=== PATIENT | female | born 1970 | race Caucasian/White ===

== ENCOUNTER 2022-08-07 12:42 | Emergency (ER) | payer BC ==
[~2022-08-07] VITALS: Ht 160 cm; Wt 78.5 kg
--- NOTE | 2022-08-07 13:03 | NUR ---
PT WALKED INTO ER C/O LEFT SIDED LEG PAIN X 2 WEEKS UNRELEIVED BY OTC PAIN MEDS. PT IS AAOX4. AMBULATED TO BED WITH STEADY GAIT. PLACED IN BED, CONNECTED TO MONITOR. VSS. AWAITING MD ORDERS.
--- NOTE | 2022-08-07 13:10 | NUR ---
DR. WATERS AT BEDSIDE FOR EVAL.
--- NOTE | 2022-08-07 15:19 | NUR ---
CREDIT CLERK AT BEDSIDE.
[2022-08-07] MEDS ORDERED: NAPR-1192 PO (16:14)
[2022-08-07 16:18] VITALS: BP 128/77
--- NOTE | 2022-08-07 16:23 | NUR ---
Patient discharged to home in stable condition. Written and verbal after care instructions given. Patient verbalizes understanding of instruction.
== END 2022-08-07 16:23 | disposition home or self-care (01) ==
LOC: ER 12:47
DX: M25.562 Pain in left knee (principal); J45.909 Unspecified asthma, uncomplicated
CPT/HCPCS: 73564-TC; 93971-TC